=== PATIENT | male | born 1955 | race Caucasian/White ===

== ENCOUNTER 2024-07-29 04:21 | Emergency (ER) | payer MEDICARE, OTHER ==
[2024-07-29] MEDS: Dexamethasone 4 MG/ML SDV IVPUSH ONE (03:53)
[2024-07-29] MEDS: Albuterol/Ipratropium 3.0-0.5 MG/3 ML Neb Soln ONE (03:59)
[2024-07-29 04:06] LABS: BASOPHILS PERCENT AUTO 0.1 % (0.0-1.0); EOSINOPHILS PERCENT AUTO 0.3 % (1.0-3.0); HEMATOCRIT 48.2 % (40.0-54.0); HEMOGLOBIN 15.7 g/dL (14.0-18.0); LYMPHOCYTES PERCENT AUTO 5.2 % (20.5-50.1); MEAN CORPUSCULAR HEMOGLOBIN 30.6 pg (27.0-34.0); MEAN CORPUSCULAR HGB CONC 32.6 g/dL (33.0-35.0); MONOCYTES PERCENT AUTO 5.9 % (2-8); NEUTROPHILS PERCENT AUTO 88.5 % (42.2-75.2); PLATELET COUNT,PLT 192 10^3/uL (150-450); RED BLOOD CELL COUNT 5.13 10^6/uL (4.6-6.2); WHITE BLOOD CELL COUNT,WBC 20.4 10^3/uL (5.0-10.0)
[2024-07-29] MEDS: Dexamethasone 4 MG/ML SDV ONE (04:20)
[~2024-07-29 04:21] MED LIST: Sodium Chloride 0.9% 1,000 ML IV ONE
[2024-07-29 04:28] LABS: B-TYPE NATRIURETIC PEPTIDE,BNP 406 pg/ml (0-100)
[2024-07-29 04:31] LABS: BASE EXCESS VENOUS -3.1 mmol/l ((-2)-(+3)); BICARBONATE,VENOUS 26 mmol/l (19-25); O2 SATURATION VENOUS 58.7 % (60-80); PO2 VENOUS 41 mmHg (35-42)
[2024-07-29 04:32] LABS: PCO2 VENOUS 65 mmHg (41-51)
[2024-07-29 04:33] LABS: ALANINE AMINOTRANSFERASE,ALT 36 U/L (16-63); ALBUMIN 3.7 g/dL (3.4-5.0); ALKALINE PHOSPHATASE 77 U/L (46-116); ANION GAP 13.9 mEq/L (7-13); ASPARTATE AMNIOTRANSFERASE,AST 32 U/L (15-37); BILIRUBIN TOTAL 0.6 mg/dL (0.2-1.0); BLOOD UREA NITROGEN,BUN 20 mg/dL (7-18); BUN/CREATININE RATIO 15.7 (No establ ref range); CALCIUM 9.4 mg/dL (8.5-10.1); CARBON DIOXIDE,CO2 28 mmol/L (21-32); CHLORIDE,CL 103 mmol/L (98-107); CREATININE 1.27 mg/dL (0.70-1.30); GLUCOSE RANDOM 190 mg/dL (70-99); LIPASE 22 U/L (16-77); MAGNESIUM 1.9 mg/dL (1.8-2.4); PH,VENOUS 7.23 (7.31-7.41); POTASSIUM,K 4.9 mmol/L (3.5-5.1); PROTEIN TOTAL,TP 7.5 g/dL (6.4-8.2); SODIUM,NA 140 mmol/L (136-145)
[2024-07-29 04:36] LABS: O2 DELIVERY DEVICE BIPAP
[2024-07-29 04:39] LABS: ESTIMATED GFR 62 mL/min (>=60)
[2024-07-29 04:40] LABS: ETHANOL BLOOD MEDICAL < 3 mg/dL (0)
[2024-07-29 04:41] LABS: LACTIC ACID 2.8 mmol/L (0.4-2.0)
[2024-07-29] MEDS ORDERED: Iopamidol 755 Mg/ML 100 ML Bottle IVPUSH ONE (04:49)
[2024-07-29] MEDS: Furosemide 40 MG/4 ML VIAL IVPUSH ONE (05:04)
[2024-07-29] MEDS: cefTRIAXone 1 GM Vial IVPUSH ONE (05:35)
[2024-07-29] MEDS: Azithromycin 500 MG in Sodium Chloride 0.9% 250 ML IV ONE (05:35)
[2024-07-29 05:45] LABS: BASE EXCESS VENOUS -1.5 mmol/l ((-2)-(+3)); BICARBONATE,VENOUS 24 mmol/l (19-25); O2 DELIVERY DEVICE BIPAP; O2 SATURATION VENOUS 97.6 % (60-80); PCO2 VENOUS 44 mmHg (41-51); PH,VENOUS 7.35 (7.31-7.41); PO2 VENOUS 98 mmHg (35-42)
[2024-07-29 06:11] LABS: APPEARANCE,URINE CLEAR (CLEAR); BILIRUBIN,URINE NEGATIVE (NEGATIVE); COLOR,URINE YELLOW (YELLOW); GLUCOSE,URINE 100 (NEGATIVE); KETONES,URINE NEGATIVE (NEGATIVE); LEUKOCYTE ESTERASE,URINE NEGATIVE (NEGATIVE); NITRITE,URINE NEGATIVE (NEGATIVE); OCCULT BLOOD,URINE NEGATIVE (NEGATIVE); PH,URINE 5.5 (5.0-9.0); PROTEIN,URINE TRACE (NEGATIVE); UROBILINOGEN,URINE 0.2 mg/dL (0.2-1.0)
[2024-07-29 06:15] LABS: AMPHETAMINES,URINE NEGATIVE (NEGATIVE); BARBITURATES,URINE NEGATIVE (NEGATIVE); BENZODIAZEPINE,URINE NEGATIVE (NEGATIVE); MDMA (ECSTASY), URINE NEGATIVE (NEGATIVE); METHADONE,URINE NEGATIVE (NEGATIVE); METHAMPHETAMINES,URINE NEGATIVE (NEGATIVE); OPIATES,URINE NEGATIVE (NEGATIVE); OXYCODONE,URINE NEGATIVE (NEGATIVE); PHENCYCLIDINE,URINE NEGATIVE (NEGATIVE); TCA,URINE NEGATIVE (NEGATIVE)
[2024-07-29 06:23] LABS: BACTERIA,URINE RARE /HPF (0-FEW/HPF); EPITHELIAL CELLS,URINE FEW /HPF (NOT SEEN); HYALINE CASTS,URINE FEW; MUCUS,URINE FEW /LPF (NOT SEEN); RBC,URINE NOT SEEN /HPF (0-5); WBC,URINE 0-5 /HPF (0-5/HPF)
[2024-07-29] MEDS: Heparin Sodium 5,000 Units/ML Vial IVPUSH ONE (06:36)
[2024-07-29] MEDS: Heparin Sodium/0.45% NaCl 25,000 UNITS/500 ML BAG IV SCH (06:37)
== END 2024-07-29 12:04 ==
LOC: DL.ED 04:21
DX: I50.9 Heart failure, unspecified (principal); I21.4 Non-ST elevation (NSTEMI) myocardial infarction; R09.02 Hypoxemia
CPT/HCPCS: 36415; 71045; 71275; 80053; 80305; 80307; 81001; 82803; 83605; 83690; 83735; 83880; 84145; 84484; 85025; 85379; 85730; 87040; 93005; 93010; 94660; 96365; 96366; 96367; 96375; 99285; A9270; J0456; J0696; J1100; J1644; J1938; J7050